=== PATIENT | female | born 2000 | race Caucasian/White ===

== ENCOUNTER 2020-11-19 21:20 | Emergency (ER) | payer OTHER ==
[2020-11-19 21:24] VITALS: BP 131/86; PULSE 85; TEMP 98.3; BMI 18.3
[2020-11-19] MEDS ORDERED: ACETAMINOPHEN 325 MG TABLET (FP) PO ONE (22:16)
[2020-11-19] MEDS ORDERED: ACETAMINOPHEN 325 MG TABLET (FP) ONE ×2 (22:39→22:40)
== END 2020-11-19 23:28 | disposition home or self-care (01) ==
LOC: JER 21:20
DX: S00.83XA Contusion of other part of head, initial encounter (principal)
CPT/HCPCS: 70450-TC; 99284-25

== ENCOUNTER 2023-05-03 22:35 | Inpatient (IN) | payer OTHER ==
[2023-05-03] MEDS: ELECTROLYTE-148 SOLN 1,000 ML IV SCH (23:35)
[2023-05-03 23:40] VITALS: BMI 23.9
[2023-05-03] MEDS ORDERED: OXYTOCIN 30 UNITS in 0.9% NS 30 UNIT/500 ML INFUS.BAG IVPB SCH (23:45)
[2023-05-03] MEDS ORDERED: FENTANYL/BUPIVACAINE/NS/PF - PCEA - 50 ML DISP.SYRIN EP ONE (23:53)
[2023-05-04] MEDS ORDERED: BUPIVACAINE HCL/PF 0.25% (2.5MG/ML) 10 ML VIAL ONE (00:10)
[2023-05-04] MEDS ORDERED: NALOXONE HCL 0.4 MG/ML VIAL IVPUSH PRN (00:49)
[2023-05-04] MEDS: FENTANYL/BUPIVACAINE/NS/PF - PCEA - 50 ML DISP.SYRIN EP SCH ×2 (00:50→03:46)
[2023-05-04] MEDS ORDERED: OXYTOCIN 30 UNITS in 0.9% NS 30 UNIT/500 ML INFUS.BAG IVPB ONE (01:36)
[2023-05-04] MEDS: ELECTROLYTE-148 SOLN 1,000 ML IV SCH (01:40)
[2023-05-04] MEDS ORDERED: OXYTOCIN 20 UNITS in 0.9% NS 20 UNIT/1,000 ML INFUS.BAG IV ONE (02:55)
[2023-05-04] MEDS ORDERED: LIDOCAINE HCL 1% PRESERVATIVE FREE - 30ML VIAL ONE (02:55)
[2023-05-04] MEDS ORDERED: FENTANYL/BUPIVACAINE/NS/PF - PCEA - 50 ML DISP.SYRIN EP ONE ×2 (03:44→07:03)
[2023-05-04] MEDS ORDERED: BENZOCAINE 28 GM HEMORRHOIDAL OINTMENT TP PRN (05:38)
[2023-05-04] MEDS ORDERED: METHYLERGONOVINE MALEATE 0.2 MG/1 ML AMP IM PRN (05:38)
[2023-05-04] MEDS ORDERED: WITCH HAZEL 50% (TUCKS) 40 PAD/JAR PAD TP PRN (05:38)
[2023-05-04] MEDS ORDERED: BENZOCAINE 20% 57 GM BOTTLE TP PRN (05:38)
[2023-05-04] MEDS ORDERED: BISACODYL 10 MG SUPP.RECT RC PRN (05:38)
[2023-05-04] MEDS ORDERED: IBUPROFEN 600 MG TABLET (FP) PO PRN (05:38)
[2023-05-04] MEDS ORDERED: OXYTOCIN 20 UNITS in 0.9% NS 20 UNIT/1,000 ML INFUS.BAG IV SCH (05:45)
[2023-05-04] MEDS ORDERED: FENTANYL CITRATE/PF 50 MCG/ML VIAL ONE (07:04)
[2023-05-04] MEDS ORDERED: LIDO 2%/EPI 1:200000 PRESRVFRE (20 ML SDVIAL) ONE (07:05)
[2023-05-04] MEDS ORDERED: MIDAZOLAM HCL 2 MG/2 ML SINGLE DOSE VIAL ONE ×2 (08:33→09:21)
[2023-05-04] MEDS ORDERED: PROPOFOL 20 ML ONE (08:33)
[2023-05-04] MEDS ORDERED: DEXAMETHASONE SOD PHOSPHATE 4 MG/1 ML VIAL ONE (08:42)
[2023-05-04] MEDS ORDERED: ONDANSETRON 4 MG/2 ML VIAL ONE (08:42)
[2023-05-04] MEDS ORDERED: LIDOCAINE HCL/PF 2% SDV 5ML VIAL ONE (08:43)
[2023-05-04] MEDS ORDERED: KETAMINE HCL 200 MG/20 ML VIAL ONE (09:17)
[2023-05-04] MEDS ORDERED: ceFAZolin SODIUM 1 GM VIAL IVPB ONE ×2 (09:20→09:30)
[2023-05-04] MEDS ORDERED: OXYTOCIN 10 UNITS/ML VIAL ONE (09:33)
[2023-05-04] MEDS ORDERED: ceFAZolin SODIUM 1 GM VIAL ONE (09:33)
[2023-05-04] MEDS ORDERED: LACTATED RINGERS SOLUTION 1,000 ML IV SCH (11:15)
[2023-05-04] MEDS: ACETAMINOPHEN 325 MG TABLET (FP) PO PRN ×2 (17:51→20:48)
[2023-05-05] MEDS: ACETAMINOPHEN 325 MG TABLET (FP) PO PRN ×3 (05:13→17:28)
[2023-05-05 09:25] VITALS: RESP 16
[2023-05-05 09:50] LABS: BASO % 0.2 % (0-2.0); EOS % 0.2 % (0-4.5); HEMATOCRIT 24.4 % (32.4-45.2); LYMPH % 14.9 % (8-40); MCH 26.1 pg (25.7-33.7); MCHC 32.6 g/dl (32.0-36.0); MEAN CELL VOLUME 79.8 fl (80-96); MEAN PLT VOLUME 8.5 fl (7.5-11.1); MONO % 9.2 % (3.8-10.2); NEUT % 75.5 % (42.8-82.8); PLATELET COUNT 221 10^3/uL (134-434); RBC 3.06 M/mm3 (3.60-5.2); RDW 15.6 % (11.6-15.6); WHITE BLOOD COUNT 17.6 K/mm3 (4.0-10.0)
[2023-05-05] MEDS: oxyCODONE HCL 5 MG TABLET PO PRN (20:58)
[2023-05-05] MEDS ORDERED: SENNOSIDES/DOCUSATE COMBO (SENNA PLUS) TABLET (UD) PO PRN (22:00)
[2023-05-06] MEDS: oxyCODONE HCL 5 MG TABLET PO PRN ×2 (02:39→10:23)
[2023-05-06 09:08] VITALS: BP 112/64; PULSE 77; TEMP 98.3
[2023-05-06] MEDS: ACETAMINOPHEN 325 MG TABLET (FP) PO PRN (10:21)
== END 2023-05-06 16:06 | disposition home or self-care (01) | DRG 560 ==
LOC: JLDR 22:35 → J3W 05-04 10:40
PROVIDERS: ADMIT Specialist; ATTEND Specialist
PROC: 0W8NXZZ Division of Female Perineum, External Approach (ICD-10-PCS; 2023-05-03)
PROC: 10E0XZZ Delivery of Products of Conception, External Approach (ICD-10-PCS; 2023-05-03)
PROC: 0UQG7ZZ Repair Vagina, Via Natural or Artificial Opening (ICD-10-PCS; principal; 2023-05-04 09:00)
DX: O72.2 Delayed and secondary postpartum hemorrhage (principal); O71.4 Obstetric high vaginal laceration alone; Z3A.39 39 weeks gestation of pregnancy; Z37.0 Single live birth
CPT/HCPCS: 36415; 80053; 85025; 85027; 85610; 85730; 86780; 86850; 86900; 86901; 87389; 94760

== ENCOUNTER 2025-03-09 01:09 | Inpatient (IN) | payer OTHER ==
[2025-03-09] MEDS: OXYTOCIN 10 UNITS/ML VIAL IM ONE (01:15)
[2025-03-09] MEDS: OXYTOCIN 20 UNITS in 0.9% NS 20 UNIT/1,000 ML INFUS.BAG IV SCH (01:25)
[2025-03-09 01:48] VITALS: BMI 23.6
[2025-03-09] MEDS ORDERED: BISACODYL 10 MG SUPP.RECT RC PRN (02:00)
[2025-03-09] MEDS ORDERED: METHYLERGONOVINE MALEATE 0.2 MG/1 ML AMP IM PRN (02:00)
[2025-03-09] MEDS ORDERED: BENZOCAINE 28 GM HEMORRHOIDAL OINTMENT TP PRN (02:00)
[2025-03-09] MEDS ORDERED: IBUPROFEN 600 MG TABLET (FP) PO PRN (02:00)
[2025-03-09 02:12] LABS: ABSOLUTE IMMATURE GRANULOCYTES 0.14 x10^3/uL (0.0-0.031); BASOPHILS # 0.03 x10^3/uL (0.01-0.08); EOSINOPHIL % 0.8 % (0.7-5.8); EOSINOPHILS # 0.10 x10^3/uL (0.04-0.36); MCHC 31.0 g/dl (32.2-35.5); MEAN CELL VOLUME 80.5 fl (79.4-94.8); MEAN PLT VOLUME 10.5 fl (9.4-12.3); MONOCYTE # 1.35 x10^3/uL (0.24-0.86); MONOCYTE % 11.3 % (4.7-12.5); RDW 14.3 % (12.1-16.5)
[2025-03-09 02:30] LABS: CO2 21.0 mmol/L (21-32); GLUCOSE,RANDOM 90.0 mg/dL (74-106)
[2025-03-09 02:32] LABS: CREATININE 0.7 mg/dL (0.55-1.3)
[2025-03-09] MEDS: DEXTROSE 5%-LACTATED RINGERS 1,000 ML IV SCH (02:48)
[2025-03-09 02:53] LABS: INR 1.0 (0.83-1.09); PROTHROMBIN TIME (PATIENT) 10.9 SEC (9.7-13.0)
[2025-03-09 02:56] LABS: ACTIVATED PTT 23.7 SECONDS (25.2-36.5)
[2025-03-09] MEDS: ACETAMINOPHEN 325 MG TABLET (FP) PO PRN (04:30)
[2025-03-09] MEDS: PRENATAL VITAMINS W/ FOLIC ACID TABLET (FP) PO SCH (09:17)
[2025-03-09] MEDS: FERROUS SO4 325 MG TABLET (FP) PO SCH (09:17)
[2025-03-09] MEDS: WITCH HAZEL 50% (TUCKS) 40 PAD/JAR PAD TP PRN (20:37)
[2025-03-09] MEDS: BENZOCAINE 20% 57 GM BOTTLE TP PRN (20:38)
[2025-03-10 08:01] LABS: ABSOLUTE IMMATURE GRANULOCYTES 0.27 x10^3/uL (0.0-0.031); BASOPHILS # 0.03 x10^3/uL (0.01-0.08); EOSINOPHIL % 2.0 % (0.7-5.8); EOSINOPHILS # 0.24 x10^3/uL (0.04-0.36); MCHC 30.6 g/dl (32.2-35.5); MEAN CELL VOLUME 82.1 fl (79.4-94.8); MEAN PLT VOLUME 10.6 fl (9.4-12.3); MONOCYTE # 1.24 x10^3/uL (0.24-0.86); MONOCYTE % 10.2 % (4.7-12.5); RDW 14.8 % (12.1-16.5)
[2025-03-10 09:15] VITALS: RESP 16
[2025-03-10] MEDS: SENNOSIDES/DOCUSATE COMBO (SENNA PLUS) TABLET (UD) PO PRN (09:54)
[2025-03-11 08:35] VITALS: BP 101/53; PULSE 84; TEMP 97.9
== END 2025-03-11 13:00 | disposition home or self-care (01) | DRG 560 ==
LOC: JLDR 01:09 → J3W 04:15
PROVIDERS: ADMIT Obstetrics & Gynecology; ATTEND Specialist
PROC: 10E0XZZ Delivery of Products of Conception, External Approach (ICD-10-PCS; principal; 2025-03-09)
PROC: 0W8NXZZ Division of Female Perineum, External Approach (ICD-10-PCS; 2025-03-09)
DX: O80 Encounter for full-term uncomplicated delivery (principal); Z3A.39 39 weeks gestation of pregnancy; Z37.0 Single live birth
CPT/HCPCS: 36415; 59409; 80048; 85025; 85610; 85730; 86780; 86850; 86900; 86901